=== PATIENT | male | born 2000 | race African-American/Black ===

== ENCOUNTER 2018-11-16 19:43 | Emergency (ER) | payer OTHER, SELFPAY ==
[2018-11-16 20:01] LABS: #Basophils 0.1 thou/uL (0.0-0.2); #Eosinphils 0.1 thou/uL (0.0-0.7); #Lymphocytes 3.2 thou/uL (1.20-3.40); #Monocytes 0.4 thou/uL (0.11-0.59); #Neutrophils 3.3 thou/uL (1.40-6.50); %Basophils 1.6 % (0.0-1.0); %Eosinophils 1.6 % (0.0-10.0); %Lymphocytes 45.2 % (28.0-48.0); %Monocytes 5.5 % (0.0-4.0); %Neutrophils 46.1 % (31.0-61.0); Hemoglobin 14.5 g/dL (14.0-18.0); Mean Corpuscular HGB CONC 31.5 g/dL (32.0-36.0); Mean Corpuscular Hemoglobin 23.6 pg (25.0-35.0); Mean Corpuscular Volume 74.9 fL (78.0-98.0); Mean Platelet Volume 8.1 fL (7.4-10.4); Platelet Count 223 thou/uL (130-400); RBC Distribution Width 13.6 % (11.5-14.5); Red Blood Cell (RBC) Count 6.13 mill/uL (4.00-5.20); White Blood Cell (WBC) Count 7.1 thou/uL (4.8-10.8)
--- NOTE | 2018-11-16 20:17 | RAD ---
LEFT KNEE FOUR VIEWS: HISTORY: Knee injury. FINDINGS: There are no signs of fracture, dislocation, or joint effusion. IMPRESSION: Negative left knee. POS: MARIIA
--- NOTE | 2018-11-16 20:19 | CT ---
CT of chest, abdomen, pelvis, thoracic spine, and lumbar spine: 11/16/2018 COMPARISON: None HISTORY: Trauma, pain TECHNIQUE: Axial CT imaging at 5 mm intervals from thoracic inlet through pubic symphysis with IV con trast. Coronal and sagittal reformatted imaging obtained. FINDINGS: No axillary, hilar, or mediastinal lymphadenopathy is noted. Vascular structures of the trena st appear unremarkable. No pleural, pericardial, or mediastinal fluid. No pneumothorax. There is peripheral groundglass opacity within the anterior aspect of the mid and lower left upper lo be. Similar groundglass opacity noted within the anterior aspect of the right middle lobe. Findings suggest pulmonary contusion. No endobronchial lesion is seen. Extraspinal osseous structures of the chest demonstrate no acute findings. No free intraperitoneal air or significant fluid. Questionable very small volume fluid noted in the p jessica. The liver, gallbladder, spleen, pancreas, adrenal glands, and kidneys appear grossly unremarkable. Limited assessment of the bowel demonstrates no acute findings. Vascular structures of the abdomen/pelvis appear unremarkable. No abdominal or pelvic lymphadenopathy . The extraspinal osseous structures of the abdomen/pelvis demonstrate no acute findings. The thoracic spine and the lumbar spine demonstrate no acute osseous abnormality. IMPRESSION: Findings suggesting bilateral pulmonary contusion. Questionable trace free fluid in the p jessica. Results called to Dr. Ozuna 8:15 PM 11/16/2018.
[2018-11-16 20:21] LABS: ALT (SGPT) 18 U/L (8-55); AST (SGOT) 22 U/L (5-34); Albumin 4.2 g/dL (3.5-5.0); Alkaline Phosphatase 71 U/L (Less than 750); Anion Gap 12 mmol/L (10-20); BUN (Urea Nitrogen) 11 mg/dL (8.9-20.6); Bilirubin, Total 0.4 mg/dL (0.2-1.2); Calc. Creatinine Clearance 0 mL/min (70-130); Calcium 9.7 mg/dL (7.8-10.44); Carbon Dioxide 24 mmol/L (22-29); Chloride 108 mmol/L (98-107); Estimated GFR-MDRD 90; Globulin 2.5 g/dL (2.4-3.5); Glucose 104 mg/dL (70-105); Potassium 3.4 mmol/L (3.5-5.1); Protein, Total 6.7 g/dL (6.0-8.3); Sodium 141 mmol/L (136-145)
[2018-11-16] MEDS ORDERED: Adacel (T-DAP) 0.5 ML SYRINGE ONE (21:13)
== END 2018-11-16 21:48 | disposition home or self-care (01) ==
LOC: ERS 19:43
DX: S27.329A Contusion of lung, unspecified, initial encounter (principal); S60.419A Abrasion of unspecified finger, initial encounter; Z23 Encounter for immunization; V89.2XXA Person injured in unspecified motor-vehicle accident, traffic, initial encounter
CPT/HCPCS: 36415; 71260; 74177; 80053; 85025; 86850; 86900; 86901; 90471; 90715; 94760; 94799; G0390

== ENCOUNTER 2020-09-28 19:53 | Emergency (ER) | payer SELFPAY | END 2020-09-28 20:40 | disposition home or self-care (01) | LOC: ERS 19:53 | DX: M67.432 Ganglion, left wrist (principal) | CPT/HCPCS: 99283 ==